=== PATIENT | female | born 1980 | race African-American/Black ===

== ENCOUNTER 2019-03-16 04:44 | Emergency (ER) | payer MEDICAID, OTHER ==
[~2019-03-16] VITALS: Ht 157.5 cm; Wt 114.0 kg
[2019-03-16 07:21] VITALS: BP 140/80
== END 2019-03-16 08:39 | disposition left against medical advice (07) ==
LOC: ER 04:44
DX: R07.9 Chest pain, unspecified (principal); R06.02 Shortness of breath; Z53.21 Procedure and treatment not carried out due to patient leaving prior to being seen by health care provider
CPT/HCPCS: 93005